=== PATIENT | male | born 1970 | race African-American/Black ===

== ENCOUNTER 2019-01-16 10:13 | Inpatient (IN) ==
[2019-01-16] MEDS ORDERED: FUROSEMIDE 40 MG/4 ML VIAL IV STA (10:54)
[2019-01-16 11:09] LABS: Basophils # 0.1 10*3/uL (0.0-0.2); Basophils % 0.8 % (0.0-0.8); Eosinophils # 0.2 10*3/uL (0.0-0.87); Hematocrit 26.5 VOL% (42.0-52.0); Hemoglobin 8.4 GM/DL (14.0-18.0); Immature Granulocytes % 1.2 %; Immature Granulocytes Absolute 0.11 #; Lymphocytes # 3.6 10*3/uL (1.4-4.0); Lymphocytes % 37.8 % (21.2-54.2); Mean Corpuscular HGB Conc 31.7 GM/DL (32-36); Mean Platelet Volume 8.5 FL (9.6-12.0); Monocytes % 8.8 % (1.7-12.7); Neutrophils % 49.4 % (38.7-73.9); Platelet Count 398 T/CUMM (130-400); Red Blood Count 2.79 MC/CUMM (3.8-5.5); Red Cell Distribution Width 14.9 % (9.3-17.3); White Blood Count 9.5 T/CUMM (4-12)
[2019-01-16 11:19] LABS: INR 0.9; Partial Thromboplastin Time 23.1 SECS (20.8-36.0)
[2019-01-16 11:34] LABS: Alanine Aminotransferase 41 U/L (16-61); Albumin 2.4 G/DL (3.4-5.0); Alkaline Phosphatase 84 U/L (45-117); Aspartate Amino Transferase 32 U/L (0-37); Bilirubin,Total < 0.39 MG/DL (0.2-1.0); Blood Urea Nitrogen 37 MG/DL (7-18); Calcium 7.8 MG/DL (8.5-10.1); Estimated Glom Filtration Rate 23 ML/MIN; Glucose 133 MG/DL (74-106); Osmolality,Calculated 298.7 MOS/KG (273-304); Total Protein 5.2 G/DL (6.4-8.3)
[2019-01-16] MEDS ORDERED: PIPERACILLIN/TAZOBACTAM 3,375 MG in SODIUM CHLORIDE 0.9% 100 ML IV STA (11:59)
[2019-01-16 12:23] LABS: Amorphous Crystals,Urine Occasional /HPF (Few); Apearance,Urine CLEAR (Clear); Bacteria,Urine Occasional /HPF (Few); Bilirubin,Urine Negative (Negative); Blood, Urine Small mg/dL (Negative); Glucose,Urine (UA) 150 mg/dL (Negative); Hyaline Casts,Urine 3 /LPF (0-3); Ketones,Urine Negative (Negative); Mucus,Urine Occasional /LPF (Occasional); Nitrite,Urine Negative (Negative); Protein,Urine >=500 MG/DL; RBC,Urine 2 /HPF (0-4); Urine Color Straw (Yellow); Urine Urobilinogen < 2.0 EU/DL (0.2-1.0); WBC,Urine 1 /HPF (0-6)
[2019-01-16] MEDS ORDERED: ACETAMINOPHEN 325 MG TABLET PO PRN (13:52)
[2019-01-16] MEDS ORDERED: DEXTROSE 50% 25 GM/50 ML VIAL IV PRN (13:52)
[2019-01-16] MEDS ORDERED: GLUCAGON 1 MG VIAL IM PRN (13:52)
[2019-01-16] MEDS ORDERED: ALBUTEROL 2.5 MG/3 ML NEB RESP TX PRN (13:55)
[2019-01-16] MEDS ORDERED: SODIUM CHLORIDE 0.9% 100 ML IV ONE (14:31)
[2019-01-16 14:34] LABS: Folate 12.5 NG/ML (5.4-24.0); Vitamin B12 546 PG/ML (211-911)
[2019-01-16] MEDS: methylPREDNISolone SOD SUC 40 MG/1 ML VIAL IV SCH (14:35)
[2019-01-16 14:37] LABS: Risk Ratio 3.06; Thyroid Stimulating Hormone 1.25 uIU/ml (0.358-3.74); VLDL CHOLESTEROL 11.8 MG/DL
[2019-01-16] MEDS: ENOXAPARIN 30 MG/0.3 ML SYRINGE SUBCUT SCH (14:39)
[2019-01-16] MEDS: cefTRIAXone 1,000 MG in SYRINGE 1 EACH IV SCH (14:40)
[2019-01-16] MEDS: AZITHROMYCIN INJ 500 MG in SODIUM CHLORIDE 0.9% 250 ML IV SCH (16:13)
[2019-01-16] MEDS: BENZONATATE 100 MG CAPSULE PO SCH ×2 (16:13→20:13)
[2019-01-16] MEDS ORDERED: hydrALAZINE 20 MG/1 ML VIAL IV PRN (16:18)
[2019-01-16 17:27] LABS: Basophils # 0.1 10*3/uL (0.0-0.2); Basophils % 0.9 % (0.0-0.8); Eosinophils # 0.2 10*3/uL (0.0-0.87); Eosinophils % 1.7 % (0.00-10.9); Hematocrit 26.3 VOL% (42.0-52.0); Hemoglobin 8.1 GM/DL (14.0-18.0); Immature Granulocytes % 1.3 %; Immature Granulocytes Absolute 0.12 #; Lymphocytes # 3.4 10*3/uL (1.4-4.0); Lymphocytes % 36.2 % (21.2-54.2); Mean Corpuscular HGB Conc 30.8 GM/DL (32-36); Mean Corpuscular Volume 96.3 FL (87-102); Mean Platelet Volume 9.3 FL (9.6-12.0); Monocytes % 4.5 % (1.7-12.7); Neutrophils % 55.4 % (38.7-73.9); Platelet Count 454 T/CUMM (130-400); Red Blood Count 2.73 MC/CUMM (3.8-5.5); White Blood Count 9.4 T/CUMM (4-12)
[2019-01-16] MEDS: INSULIN REGULAR 100 UNIT/ML SUBCUT SCH (17:35)
[2019-01-16 19:29] LABS: Sedimentation Rate-Westergren 40 MM/HR (0-15)
[2019-01-16] MEDS: ALBUTEROL/IPRATROPIUM 3 ML NEB RESP TX SCH (20:11)
[2019-01-16] MEDS: ATORVASTATIN 20 MG TABLET PO SCH (20:13)
[2019-01-16 22:47] LABS: Apearance,Urine CLEAR (Clear); Bacteria,Urine Occasional /HPF (Few); Bilirubin,Urine Negative (Negative); Blood, Urine Small mg/dL (Negative); Glucose,Urine (UA) >=500 mg/dL (Negative); Ketones,Urine Negative (Negative); Nitrite,Urine Negative (Negative); Protein,Urine >=500 MG/DL; RBC,Urine 4 /HPF (0-4); Urine Color Straw (Yellow); Urine Urobilinogen < 2.0 EU/DL (0.2-1.0); WBC,Urine 2 /HPF (0-6)
[2019-01-16 23:04] LABS: Barbiturates Screen,Urine Negative (Negative); Benzodiazepines Screen,Urine Negative (Negative); Cannabinoid Screen,Urine Negative (Negative); Opiate Screen,Urine Negative (Negative); Phencyclidine Screen,Urine Negative (Negative)
[2019-01-17] MEDS: methylPREDNISolone SOD SUC 40 MG/1 ML VIAL IV SCH ×2 (01:13→15:40)
[2019-01-17] MEDS: ALBUTEROL/IPRATROPIUM 3 ML NEB RESP TX SCH ×5 (01:13→20:03)
[2019-01-17 05:26] LABS: Basophils % 0.2 % (0.0-0.8); Eosinophils % 0.1 % (0.00-10.9); Hematocrit 26.5 VOL% (42.0-52.0); Hemoglobin 8.3 GM/DL (14.0-18.0); Immature Granulocytes % 2.2 %; Immature Granulocytes Absolute 0.25 #; Lymphocytes # 3.1 10*3/uL (1.4-4.0); Lymphocytes % 27.2 % (21.2-54.2); Mean Corpuscular HGB Conc 31.3 GM/DL (32-36); Mean Corpuscular Volume 93.6 FL (87-102); Mean Platelet Volume 9.3 FL (9.6-12.0); Monocytes % 2.6 % (1.7-12.7); Neutrophils % 67.7 % (38.7-73.9); Platelet Count 462 T/CUMM (130-400); Red Blood Count 2.83 MC/CUMM (3.8-5.5); Red Cell Distribution Width 14.7 % (9.3-17.3); White Blood Count 11.4 T/CUMM (4-12)
[2019-01-17 05:45] LABS: Calcium 7.7 MG/DL (8.5-10.1); Osmolality,Calculated 294.4 MOS/KG (273-304)
[2019-01-17] MEDS: PANTOPRAZOLE 40 MG TABLET PO SCH (08:47)
[2019-01-17] MEDS: FUROSEMIDE 40 MG/4 ML VIAL IV SCH (08:48)
[2019-01-17] MEDS: BENZONATATE 100 MG CAPSULE PO SCH ×3 (08:48→20:34)
[2019-01-17] MEDS: INSULIN GLARGINE 100 UNIT/ML SUBCUT SCH (08:48)
[2019-01-17] MEDS: INSULIN REGULAR 100 UNIT/ML SUBCUT SCH ×3 (08:48→16:33)
[2019-01-17 10:56] LABS: Hemoglobin A1 (Alkaline) 97.2 % (96.5-98.5); Hemoglobin A2 (Alkaline) 2.8 % (1.5-3.5)
[2019-01-17] MEDS: cefTRIAXone 1,000 MG in SYRINGE 1 EACH IV SCH (15:21)
[2019-01-17] MEDS: AZITHROMYCIN INJ 500 MG in SODIUM CHLORIDE 0.9% 250 ML IV SCH (15:25)
[2019-01-17] MEDS: ENOXAPARIN 30 MG/0.3 ML SYRINGE SUBCUT SCH (15:26)
[2019-01-17] MEDS ORDERED: INSULIN REGULAR 100 UNIT/ML SUBCUT ONE (15:40)
[2019-01-17] MEDS: ATORVASTATIN 20 MG TABLET PO SCH (20:34)
[2019-01-17 22:43] LABS: Creatinine,Urine Random 113 MG/DL; Total Protein,Urine Random 592 MG/DL; Urea Nitrogen, Urine Random 493 MG/DL
[2019-01-18] MEDS: ALBUTEROL/IPRATROPIUM 3 ML NEB RESP TX SCH ×2 (00:37→08:39)
[2019-01-18] MEDS: methylPREDNISolone SOD SUC 40 MG/1 ML VIAL IV SCH ×2 (02:20→14:22)
[2019-01-18 04:48] LABS: Basophils % 0.2 % (0.0-0.8); Eosinophils % 0.1 % (0.00-10.9); Hematocrit 24.7 VOL% (42.0-52.0); Hemoglobin 7.9 GM/DL (14.0-18.0); Immature Granulocytes % 1.6 %; Lymphocytes # 2.8 10*3/uL (1.4-4.0); Lymphocytes % 22.8 % (21.2-54.2); Mean Corpuscular Volume 92.9 FL (87-102); Mean Platelet Volume 9.1 FL (9.6-12.0); Monocytes % 3.8 % (1.7-12.7); Neutrophils % 71.5 % (38.7-73.9); Platelet Count 430 T/CUMM (130-400); Red Blood Count 2.66 MC/CUMM (3.8-5.5); Red Cell Distribution Width 14.8 % (9.3-17.3); White Blood Count 12.4 T/CUMM (4-12)
[2019-01-18 05:14] LABS: Albumin 2.4 G/DL (3.4-5.0); Calcium 7.9 MG/DL (8.5-10.1); Osmolality,Calculated 297.4 MOS/KG (273-304)
[2019-01-18] MEDS: INSULIN REGULAR 100 UNIT/ML SUBCUT SCH ×2 (08:51→13:08)
[2019-01-18] MEDS: BENZONATATE 100 MG CAPSULE PO SCH ×2 (08:52→14:22)
[2019-01-18] MEDS: FUROSEMIDE 40 MG/4 ML VIAL IV SCH (08:52)
[2019-01-18] MEDS: INSULIN GLARGINE 100 UNIT/ML SUBCUT SCH (08:52)
[2019-01-18] MEDS: PANTOPRAZOLE 40 MG TABLET PO SCH (08:52)
[2019-01-18] MEDS ORDERED: AZITHROMYCIN 250 MG TABLET PO SCH (09:00)
[2019-01-18 13:47] VITALS: BP 162/91
[2019-01-18] MEDS: ENOXAPARIN 30 MG/0.3 ML SYRINGE SUBCUT SCH (14:22)
[2019-01-18] MEDS: cefTRIAXone 1,000 MG in SYRINGE 1 EACH IV SCH (14:25)
[2019-01-18] MEDS ORDERED: FERROUS SULFATE 325 MG TABLET PO SCH (21:00)
== END 2019-01-18 15:04 | disposition home or self-care (01) | DRG 139 ==
LOC: N.ED 10:13 → N.EDINP 13:52 → SUATTDRO 13:52 → N.5E 14:45
PROVIDERS: ADMIT Internal Medicine; ATTEND Internal Medicine

== ENCOUNTER 2019-08-22 16:31 | Inpatient (IN) ==
[2019-08-22] MEDS ORDERED: hydrALAZINE 20 MG/1 ML VIAL ONE (17:55)
[2019-08-22 17:56] LABS: Basophils # 0.1 10*3/uL (0.0-0.2); Basophils % 0.7 % (0.0-0.8); Eosinophils # 0.3 10*3/uL (0.0-0.87); Eosinophils % 2.7 % (0.00-10.9); Hematocrit 25.2 VOL% (42.0-52.0); Hemoglobin 7.8 GM/DL (14.0-18.0); Immature Granulocytes % 0.9 %; Lymphocytes # 1.7 10*3/uL (1.4-4.0); Lymphocytes % 15.9 % (21.2-54.2); Mean Platelet Volume 8.1 FL (9.6-12.0); Monocytes % 10.3 % (1.7-12.7); Neutrophils % 69.5 % (38.7-73.9); Platelet Count 551 T/CUMM (130-400); Red Blood Count 2.71 MC/CUMM (3.8-5.5); White Blood Count 10.7 T/CUMM (4-12)
[2019-08-22] MEDS ORDERED: hydrALAZINE 20 MG/1 ML VIAL IV STA (17:57)
[2019-08-22 18:07] LABS: PT Patient Result 11.1 SECS (9.8-11.9)
[2019-08-22 18:12] LABS: Alanine Aminotransferase 33 U/L (16-61); Albumin 1.9 G/DL (3.4-5.0); Alkaline Phosphatase 89 U/L (45-117); Aspartate Amino Transferase 17 U/L (0-37); Bilirubin,Total < 0.39 MG/DL (0.2-1.0); Blood Urea Nitrogen 45 MG/DL (7-18); Calcium 8.4 MG/DL (8.5-10.1); Estimated Glom Filtration Rate 13 ML/MIN; Glucose 133 MG/DL (74-106); Osmolality,Calculated 292.4 MOS/KG (273-304); Total Protein 7.1 G/DL (6.4-8.3)
[2019-08-22 18:13] LABS: Ferritin 513.6 ng/ml (26-388)
[2019-08-22] MEDS ORDERED: GLUCAGON 1 MG VIAL IM PRN (19:20)
[2019-08-22] MEDS ORDERED: ACETAMINOPHEN 325 MG TABLET PO PRN (19:20)
[2019-08-22] MEDS ORDERED: ONDANSETRON 4 MG/2 ML VIAL IV PRN (19:20)
[2019-08-22] MEDS ORDERED: DEXTROSE 50% 25 GM/50 ML VIAL IV PRN (19:20)
[2019-08-22] MEDS ORDERED: amLODIPine 5 MG TABLET PO STA (19:23)
[2019-08-22] MEDS ORDERED: hydrALAZINE 20 MG/1 ML VIAL IV PRN (19:25)
[2019-08-22] MEDS ORDERED: DOCUSATE SODIUM 100 MG CAPSULE PO PRN (19:28)
[2019-08-22] MEDS ORDERED: LACTULOSE 20 GM/30 ML UDCUP PO PRN (19:28)
[2019-08-22] MEDS ORDERED: cefTRIAXone 1,000 MG VIAL ONE (21:39)
[2019-08-22] MEDS: HEPARIN 5,000 UNIT/1 ML VIAL SUBCUT SCH (21:58)
[2019-08-22] MEDS: INSULIN REGULAR 100 UNIT/ML SUBCUT SCH (21:59)
[2019-08-22] MEDS: cefTRIAXone 2,000 MG in SYRINGE 1 EACH IV SCH (22:45)
[2019-08-22] MEDS: guaiFENesin/DM ER 600-30 MG TABLET PO SCH (23:51)
[2019-08-22] MEDS: ALBUTEROL 2 MG TABLET PO SCH (23:52)
[2019-08-22] MEDS: hydrALAZINE 25 MG TABLET PO SCH (23:52)
[2019-08-23] MEDS: BUDESONIDE/FORMOTEROL 80-4.5 INHALER 6.9 GM INH SCH ×3 (00:36→21:32)
[2019-08-23 05:24] LABS: Basophils # 0.1 10*3/uL (0.0-0.2); Basophils % 0.7 % (0.0-0.8); Eosinophils # 0.1 10*3/uL (0.0-0.87); Eosinophils % 0.8 % (0.00-10.9); Hematocrit 27.3 VOL% (42.0-52.0); Hemoglobin 8.8 GM/DL (14.0-18.0); Immature Granulocytes % 1.3 %; Immature Granulocytes Absolute 0.16 #; Lymphocytes # 1.2 10*3/uL (1.4-4.0); Lymphocytes % 9.7 % (21.2-54.2); Mean Corpuscular HGB Conc 32.2 GM/DL (32-36); Mean Corpuscular Volume 91.9 FL (87-102); Mean Platelet Volume 8.3 FL (9.6-12.0); Neutrophils % 78.5 % (38.7-73.9); Platelet Count 538 T/CUMM (130-400); Red Blood Count 2.97 MC/CUMM (3.8-5.5); White Blood Count 12.1 T/CUMM (4-12)
[2019-08-23] MEDS: HEPARIN 5,000 UNIT/1 ML VIAL SUBCUT SCH ×3 (05:28→21:28)
[2019-08-23 06:01] LABS: % Iron Saturation 12.3 % (18-50); Ferritin 514.2 ng/ml (26-388)
[2019-08-23 06:16] LABS: Folate 14.9 NG/ML (5.4-24.0); Vitamin B12 607 PG/ML (211-911)
[2019-08-23 06:18] LABS: Calcium 8.4 MG/DL (8.5-10.1); Osmolality,Calculated 294.3 MOS/KG (273-304)
[2019-08-23 06:40] LABS: Sedimentation Rate-Westergren 120 MM/HR (0-15)
[2019-08-23] MEDS ORDERED: GLYCOPYRROLATE FORMOTEROL INH SCH (09:00)
[2019-08-23] MEDS: NICOTINE 21 MG/24 HR PATCH TRANSDERM SCH (09:13)
[2019-08-23] MEDS: ALBUTEROL 2 MG TABLET PO SCH ×3 (09:14→21:27)
[2019-08-23] MEDS: OMEGA 3 ACID ETHYL ESTERS 1 GM CAPSULE PO SCH (09:14)
[2019-08-23] MEDS: guaiFENesin/DM ER 600-30 MG TABLET PO SCH ×2 (09:14→21:27)
[2019-08-23] MEDS: INSULIN REGULAR 100 UNIT/ML SUBCUT SCH ×4 (09:14→21:32)
[2019-08-23] MEDS: GABAPENTIN 300 MG CAPSULE PO SCH ×3 (09:14→21:27)
[2019-08-23] MEDS: buPROPion SR 100 MG TABLET PO SCH (09:20)
[2019-08-23] MEDS: AZITHROMYCIN INJ 500 MG in SODIUM CHLORIDE 0.9% 250 ML IV SCH (09:24)
[2019-08-23 12:21] LABS: Parathyroid Hormone Intact 390.4 PG/ML (18.4-80.1)
[2019-08-23] MEDS: amLODIPine 5 MG TABLET PO SCH (14:37)
[2019-08-23] MEDS: hydrALAZINE 25 MG TABLET PO SCH ×2 (14:37→21:27)
[2019-08-23] MEDS: cefTRIAXone 2,000 MG in SYRINGE 1 EACH IV SCH (21:24)
[2019-08-23] MEDS: ATORVASTATIN 20 MG TABLET PO SCH (21:27)
[2019-08-24] MEDS: HEPARIN 5,000 UNIT/1 ML VIAL SUBCUT SCH ×3 (05:43→21:26)
[2019-08-24 05:59] LABS: Basophils # 0.1 10*3/uL (0.0-0.2); Eosinophils # 0.2 10*3/uL (0.0-0.87); Eosinophils % 1.8 % (0.00-10.9); Hematocrit 28.4 VOL% (42.0-52.0); Hemoglobin 8.8 GM/DL (14.0-18.0); Immature Granulocytes Absolute 0.11 #; Lymphocytes # 1.1 10*3/uL (1.4-4.0); Lymphocytes % 10.2 % (21.2-54.2); Mean Corpuscular Volume 94.4 FL (87-102); Mean Platelet Volume 8.5 FL (9.6-12.0); Monocytes % 9.5 % (1.7-12.7); Neutrophils % 76.5 % (38.7-73.9); Platelet Count 538 T/CUMM (130-400); Red Blood Count 3.01 MC/CUMM (3.8-5.5); Red Cell Distribution Width 15.2 % (9.3-17.3); White Blood Count 11.1 T/CUMM (4-12)
[2019-08-24 06:27] LABS: Calcium 8.6 MG/DL (8.5-10.1); Osmolality,Calculated 284.5 MOS/KG (273-304)
[2019-08-24] MEDS: ALBUTEROL 2 MG TABLET PO SCH ×3 (09:04→21:26)
[2019-08-24] MEDS: NICOTINE 21 MG/24 HR PATCH TRANSDERM SCH (09:04)
[2019-08-24] MEDS: guaiFENesin/DM ER 600-30 MG TABLET PO SCH ×2 (09:05→21:26)
[2019-08-24] MEDS: OMEGA 3 ACID ETHYL ESTERS 1 GM CAPSULE PO SCH (09:05)
[2019-08-24] MEDS: amLODIPine 5 MG TABLET PO SCH (09:05)
[2019-08-24] MEDS: hydrALAZINE 25 MG TABLET PO SCH ×2 (09:05→21:26)
[2019-08-24] MEDS: GABAPENTIN 300 MG CAPSULE PO SCH ×3 (09:05→21:26)
[2019-08-24] MEDS: CINACALCET 30 MG TABLET PO SCH (09:05)
[2019-08-24] MEDS: BUDESONIDE/FORMOTEROL 80-4.5 INHALER 6.9 GM INH SCH ×2 (09:05→21:27)
[2019-08-24] MEDS: buPROPion SR 100 MG TABLET PO SCH (09:05)
[2019-08-24] MEDS: INSULIN REGULAR 100 UNIT/ML SUBCUT SCH ×4 (09:13→21:27)
[2019-08-24] MEDS: AZITHROMYCIN INJ 500 MG in SODIUM CHLORIDE 0.9% 250 ML IV SCH (09:13)
[2019-08-24 09:48] LABS: ABG Base Excess 2.3 MMOL/L (-2.5-2.5); ABG HCO3 26.5 MMOL/L (20-26); ABG Oxygen Saturation 94.8 % (95-100); ABG PCO2 51.7 MM HG (35-48); ABG PO2 78.5 MM HG (80-95); ABG TCO2 26.7 MMOL/L (23-27)
[2019-08-24] MEDS ORDERED: ALBUTEROL/IPRATROPIUM 3 ML NEB RESP TX PRN (11:55)
[2019-08-24] MEDS: ATORVASTATIN 20 MG TABLET PO SCH (21:26)
[2019-08-24] MEDS: cefTRIAXone 2,000 MG in SYRINGE 1 EACH IV SCH (23:54)
[2019-08-25] MEDS: HEPARIN 5,000 UNIT/1 ML VIAL SUBCUT SCH ×3 (05:58→23:12)
[2019-08-25] MEDS: INSULIN REGULAR 100 UNIT/ML SUBCUT SCH ×4 (08:04→23:12)
[2019-08-25] MEDS: ALBUTEROL 2 MG TABLET PO SCH ×3 (08:52→23:11)
[2019-08-25] MEDS: GABAPENTIN 300 MG CAPSULE PO SCH ×3 (08:52→23:11)
[2019-08-25 10:01] LABS: Eosinophils,Pleural Fluid 8 %; Lymphocytes,Pleural Fluid 57 %; Monocytes,Pleural Fluid 8 %; Neutrophils,Pleural Fluid 27 %
[2019-08-25 10:05] LABS: RBC,Pleural Fluid 993 T/CUMM
[2019-08-25] MEDS: NICOTINE 21 MG/24 HR PATCH TRANSDERM SCH (10:53)
[2019-08-25] MEDS: hydrALAZINE 25 MG TABLET PO SCH ×2 (10:54→23:12)
[2019-08-25] MEDS: amLODIPine 5 MG TABLET PO SCH (10:54)
[2019-08-25] MEDS: CINACALCET 30 MG TABLET PO SCH (10:54)
[2019-08-25] MEDS: OMEGA 3 ACID ETHYL ESTERS 1 GM CAPSULE PO SCH (10:54)
[2019-08-25] MEDS: BUDESONIDE/FORMOTEROL 80-4.5 INHALER 6.9 GM INH SCH ×2 (10:54→23:16)
[2019-08-25] MEDS: buPROPion SR 100 MG TABLET PO SCH (10:54)
[2019-08-25] MEDS: guaiFENesin/DM ER 600-30 MG TABLET PO SCH ×2 (10:54→23:12)
[2019-08-25] MEDS: AZITHROMYCIN INJ 500 MG in SODIUM CHLORIDE 0.9% 250 ML IV SCH (10:59)
[2019-08-25 12:15] LABS: Hemoglobin A1 (Alkaline) 97.1 % (96.5-98.5); Hemoglobin A2 (Alkaline) 2.9 % (1.5-3.5)
[2019-08-25 13:27] LABS: Basophils # 0.1 10*3/uL (0.0-0.2); Basophils % 0.9 % (0.0-0.8); Eosinophils # 0.1 10*3/uL (0.0-0.87); Eosinophils % 1.3 % (0.00-10.9); Hematocrit 27.1 VOL% (42.0-52.0); Hemoglobin 8.2 GM/DL (14.0-18.0); Immature Granulocytes % 0.6 %; Immature Granulocytes Absolute 0.06 #; Lymphocytes # 0.9 10*3/uL (1.4-4.0); Lymphocytes % 8.6 % (21.2-54.2); Mean Corpuscular HGB Conc 30.3 GM/DL (32-36); Mean Corpuscular Volume 95.1 FL (87-102); Mean Platelet Volume 9.5 FL (9.6-12.0); Monocytes % 6.6 % (1.7-12.7); Platelet Count 461 T/CUMM (130-400); Red Blood Count 2.85 MC/CUMM (3.8-5.5); Red Cell Distribution Width 15.4 % (9.3-17.3); White Blood Count 10.3 T/CUMM (4-12)
[2019-08-25 13:53] LABS: Calcium 8.1 MG/DL (8.5-10.1); Osmolality,Calculated 281.8 MOS/KG (273-304)
[2019-08-25 14:45] LABS: Hepatitis B Core IgM Quant 0.14 Index; Hepatitis B Surface Ag Quant < 0.10 Index; Hepatitis B Surface Ag Result Negative (Negative); Hepatitis C Virus Ab Quant 0.06 Index; Hepatitis C Virus Ab Result Negative (Negative)
[2019-08-25] MEDS: cefTRIAXone 2,000 MG in SYRINGE 1 EACH IV SCH (22:14)
[2019-08-25] MEDS: ATORVASTATIN 20 MG TABLET PO SCH (23:11)
[2019-08-26] MEDS: HEPARIN 5,000 UNIT/1 ML VIAL SUBCUT SCH ×3 (05:20→21:39)
[2019-08-26 06:34] LABS: Basophils # 0.1 10*3/uL (0.0-0.2); Basophils % 0.8 % (0.0-0.8); Eosinophils % 0.4 % (0.00-10.9); Hematocrit 23.6 VOL% (42.0-52.0); Hemoglobin 7.4 GM/DL (14.0-18.0); Immature Granulocytes % 0.6 %; Immature Granulocytes Absolute 0.06 #; Lymphocytes # 1.1 10*3/uL (1.4-4.0); Lymphocytes % 11.3 % (21.2-54.2); Mean Corpuscular HGB Conc 31.4 GM/DL (32-36); Mean Corpuscular Volume 91.5 FL (87-102); Mean Platelet Volume 8.6 FL (9.6-12.0); Monocytes % 8.1 % (1.7-12.7); Neutrophils % 78.8 % (38.7-73.9); Platelet Count 461 T/CUMM (130-400); Red Blood Count 2.58 MC/CUMM (3.8-5.5); Red Cell Distribution Width 15.3 % (9.3-17.3); White Blood Count 9.9 T/CUMM (4-12)
[2019-08-26 06:55] LABS: Calcium 7.6 MG/DL (8.5-10.1)
[2019-08-26] MEDS: buPROPion SR 100 MG TABLET PO SCH (08:39)
[2019-08-26] MEDS: OMEGA 3 ACID ETHYL ESTERS 1 GM CAPSULE PO SCH (08:39)
[2019-08-26] MEDS: amLODIPine 5 MG TABLET PO SCH (08:39)
[2019-08-26] MEDS: guaiFENesin/DM ER 600-30 MG TABLET PO SCH ×2 (08:39→21:26)
[2019-08-26] MEDS: INSULIN GLARGINE 100 UNIT/ML SUBCUT SCH (08:39)
[2019-08-26] MEDS: GABAPENTIN 300 MG CAPSULE PO SCH ×3 (08:40→21:26)
[2019-08-26] MEDS: CINACALCET 30 MG TABLET PO SCH (08:40)
[2019-08-26] MEDS: hydrALAZINE 25 MG TABLET PO SCH ×2 (08:40→21:26)
[2019-08-26] MEDS: INSULIN REGULAR 100 UNIT/ML SUBCUT SCH ×4 (08:40→21:24)
[2019-08-26] MEDS: NICOTINE 21 MG/24 HR PATCH TRANSDERM SCH (08:40)
[2019-08-26] MEDS: BUDESONIDE/FORMOTEROL 80-4.5 INHALER 6.9 GM INH SCH ×2 (08:41→21:27)
[2019-08-26] MEDS: AZITHROMYCIN INJ 500 MG in SODIUM CHLORIDE 0.9% 250 ML IV SCH (08:41)
[2019-08-26] MEDS: ALBUTEROL 2 MG TABLET PO SCH ×3 (08:59→21:26)
[2019-08-26] MEDS: ATORVASTATIN 20 MG TABLET PO SCH (21:26)
[2019-08-26] MEDS: cefTRIAXone 2,000 MG in SYRINGE 1 EACH IV SCH (21:28)
[2019-08-27] MEDS: HEPARIN 5,000 UNIT/1 ML VIAL SUBCUT SCH ×3 (05:11→22:01)
[2019-08-27 05:47] LABS: Basophils # 0.1 10*3/uL (0.0-0.2); Basophils % 0.8 % (0.0-0.8); Eosinophils # 0.2 10*3/uL (0.0-0.87); Eosinophils % 2.1 % (0.00-10.9); Hematocrit 23.3 VOL% (42.0-52.0); Hemoglobin 7.4 GM/DL (14.0-18.0); Immature Granulocytes % 0.4 %; Immature Granulocytes Absolute 0.04 #; Lymphocytes # 1.4 10*3/uL (1.4-4.0); Mean Corpuscular HGB Conc 31.8 GM/DL (32-36); Mean Platelet Volume 8.7 FL (9.6-12.0); Monocytes % 10.3 % (1.7-12.7); Neutrophils % 71.4 % (38.7-73.9); Platelet Count 482 T/CUMM (130-400); Red Blood Count 2.59 MC/CUMM (3.8-5.5); Red Cell Distribution Width 15.2 % (9.3-17.3); White Blood Count 9.3 T/CUMM (4-12)
[2019-08-27 06:01] LABS: Calcium 7.7 MG/DL (8.5-10.1); Osmolality,Calculated 281.8 MOS/KG (273-304)
[2019-08-27] MEDS: NICOTINE 21 MG/24 HR PATCH TRANSDERM SCH (08:42)
[2019-08-27] MEDS: amLODIPine 5 MG TABLET PO SCH (08:43)
[2019-08-27] MEDS: CINACALCET 30 MG TABLET PO SCH (08:43)
[2019-08-27] MEDS: OMEGA 3 ACID ETHYL ESTERS 1 GM CAPSULE PO SCH (08:43)
[2019-08-27] MEDS: INSULIN GLARGINE 100 UNIT/ML SUBCUT SCH (08:44)
[2019-08-27] MEDS: ALBUTEROL 2 MG TABLET PO SCH ×3 (08:44→22:00)
[2019-08-27] MEDS: INSULIN REGULAR 100 UNIT/ML SUBCUT SCH ×4 (08:44→22:01)
[2019-08-27] MEDS: guaiFENesin/DM ER 600-30 MG TABLET PO SCH ×2 (08:44→22:00)
[2019-08-27] MEDS: GABAPENTIN 300 MG CAPSULE PO SCH ×3 (08:44→22:01)
[2019-08-27] MEDS: hydrALAZINE 25 MG TABLET PO SCH ×2 (08:44→22:00)
[2019-08-27] MEDS: BUDESONIDE/FORMOTEROL 80-4.5 INHALER 6.9 GM INH SCH ×2 (08:46→22:02)
[2019-08-27] MEDS: AZITHROMYCIN INJ 500 MG in SODIUM CHLORIDE 0.9% 250 ML IV SCH (13:42)
[2019-08-27] MEDS: ATORVASTATIN 20 MG TABLET PO SCH (22:00)
[2019-08-27] MEDS: cefTRIAXone 2,000 MG in SYRINGE 1 EACH IV SCH (22:01)
[2019-08-28] MEDS: HEPARIN 5,000 UNIT/1 ML VIAL SUBCUT SCH (06:35)
[2019-08-28 06:56] LABS: Basophils # 0.1 10*3/uL (0.0-0.2); Basophils % 0.9 % (0.0-0.8); Eosinophils # 0.2 10*3/uL (0.0-0.87); Eosinophils % 2.1 % (0.00-10.9); Hematocrit 23.6 VOL% (42.0-52.0); Hemoglobin 7.5 GM/DL (14.0-18.0); Immature Granulocytes % 0.7 %; Immature Granulocytes Absolute 0.05 #; Lymphocytes # 1.5 10*3/uL (1.4-4.0); Mean Corpuscular HGB Conc 31.8 GM/DL (32-36); Mean Corpuscular Volume 89.7 FL (87-102); Mean Platelet Volume 8.4 FL (9.6-12.0); Monocytes % 11.2 % (1.7-12.7); Neutrophils % 65.1 % (38.7-73.9); Platelet Count 481 T/CUMM (130-400); Red Blood Count 2.63 MC/CUMM (3.8-5.5); Red Cell Distribution Width 15.4 % (9.3-17.3); White Blood Count 7.7 T/CUMM (4-12)
[2019-08-28 07:22] LABS: Calcium 7.9 MG/DL (8.5-10.1); Osmolality,Calculated 278.7 MOS/KG (273-304)
[2019-08-28 07:57] VITALS: BP 156/80
[2019-08-28] MEDS: INSULIN REGULAR 100 UNIT/ML SUBCUT SCH ×2 (08:32→12:28)
[2019-08-28] MEDS: NICOTINE 21 MG/24 HR PATCH TRANSDERM SCH (08:43)
[2019-08-28] MEDS: AZITHROMYCIN INJ 500 MG in SODIUM CHLORIDE 0.9% 250 ML IV SCH (08:44)
[2019-08-28] MEDS: amLODIPine 5 MG TABLET PO SCH (08:44)
[2019-08-28] MEDS: hydrALAZINE 25 MG TABLET PO SCH (08:45)
[2019-08-28] MEDS: GABAPENTIN 300 MG CAPSULE PO SCH (08:45)
[2019-08-28] MEDS: ALBUTEROL 2 MG TABLET PO SCH (08:45)
[2019-08-28] MEDS: guaiFENesin/DM ER 600-30 MG TABLET PO SCH (08:45)
[2019-08-28] MEDS: OMEGA 3 ACID ETHYL ESTERS 1 GM CAPSULE PO SCH (08:45)
[2019-08-28] MEDS: BUDESONIDE/FORMOTEROL 80-4.5 INHALER 6.9 GM INH SCH (08:46)
[2019-08-28] MEDS: CINACALCET 30 MG TABLET PO SCH (09:00)
[2019-08-28] MEDS: INSULIN GLARGINE 100 UNIT/ML SUBCUT SCH (09:01)
[2019-08-28] MEDS ORDERED: CEFUROXIME 250 MG TABLET PO SCH (21:00)
== END 2019-08-28 12:35 | disposition home health service (06) | DRG 194 ==
LOC: EDUNIT# → EDBD → N.ED 16:31 → N.EDINP 19:01 → SUATTDRO 19:01 → N.TELES 19:41
PROVIDERS: ADMIT Internal Medicine; ATTEND Hospitalist

== ENCOUNTER 2019-12-17 11:31 | Inpatient (IN) ==
[2019-12-17] MEDS ORDERED: ALBUTEROL/IPRATROPIUM 3 ML NEB RESP TX STA (12:07)
[2019-12-17 12:25] LABS: Basophils # 0.1 10*3/uL (0.0-0.2); Eosinophils # 0.2 10*3/uL (0.0-0.87); Eosinophils % 4.5 % (0.00-10.9); Hematocrit 37.5 VOL% (42.0-52.0); Hemoglobin 12.6 GM/DL (14.0-18.0); Immature Granulocytes % 0.4 %; Immature Granulocytes Absolute 0.02 #; Lymphocytes # 1.7 10*3/uL (1.4-4.0); Mean Corpuscular HGB Conc 33.6 GM/DL (32-36); Mean Corpuscular Volume 87.6 FL (87-102); Mean Platelet Volume 8.2 FL (9.6-12.0); Monocytes % 13.4 % (1.7-12.7); Neutrophils % 47.7 % (38.7-73.9); Platelet Count 201 T/CUMM (130-400); Red Blood Count 4.28 MC/CUMM (3.8-5.5); Red Cell Distribution Width 20.1 % (9.3-17.3); White Blood Count 5.1 T/CUMM (4-12)
[2019-12-17 14:23] LABS: Albumin 3.4 G/DL (3.4-5.0); Bilirubin,Total 0.4 MG/DL (0.2-1.0); Calcium 9.1 MG/DL (8.5-10.1); Osmolality,Calculated 278.5 MOS/KG (273-304); Total Protein 8.1 G/DL (6.4-8.3)
[2019-12-17] MEDS ORDERED: ACETAMINOPHEN 325 MG TABLET PO PRN (14:54)
[2019-12-17] MEDS ORDERED: DEXTROSE 50% 25 GM/50 ML VIAL IV PRN (14:54)
[2019-12-17] MEDS ORDERED: GLUCAGON 1 MG VIAL IM PRN (14:54)
[2019-12-17] MEDS ORDERED: BISACODYL 5 MG TABLET PO PRN (14:54)
[2019-12-17] MEDS ORDERED: ONDANSETRON 4 MG/2 ML VIAL IV PRN (14:54)
[2019-12-17] MEDS ORDERED: NICOTINE 21 MG/24 HR PATCH TRANSDERM PRN (14:54)
[2019-12-17 15:16] LABS: PT Patient Result 11.1 SECS (9.8-11.9)
[2019-12-17 15:17] LABS: Partial Thromboplastin Time 61.8 SECS (23.9-33.8)
[2019-12-17] MEDS ORDERED: hydrALAZINE 20 MG/1 ML VIAL IV PRN (15:27)
[2019-12-17] MEDS ORDERED: FUROSEMIDE 40 MG/4 ML VIAL IV STA (16:02)
[2019-12-17 16:51] LABS: Albumin 3.4 G/DL (3.4-5.0); Total Protein 7.9 G/DL (6.4-8.3)
[2019-12-17] MEDS: cefTRIAXone 1,000 MG in SYRINGE 1 EACH IV SCH (17:20)
[2019-12-17] MEDS: ALBUTEROL/IPRATROPIUM 3 ML NEB RESP TX SCH (19:50)
[2019-12-17] MEDS: INSULIN LISPRO 100 UNIT/ML SUBCUT SCH ×2 (20:18→20:19)
[2019-12-17] MEDS: carvediloL 12.5 MG TABLET PO SCH (23:08)
[2019-12-17] MEDS: ATORVASTATIN 20 MG TABLET PO SCH (23:08)
[2019-12-17] MEDS: GABAPENTIN 300 MG CAPSULE PO SCH ×2 (23:12→23:13)
[2019-12-18] MEDS: ALBUTEROL/IPRATROPIUM 3 ML NEB RESP TX SCH ×4 (00:15→18:57)
[2019-12-18] MEDS ORDERED: PNEUMOCOCCAL VACCINE (13 VALENT) 0.5 ML SYRINGE IM ONE (01:00)
[2019-12-18] MEDS: AZITHROMYCIN INJ 500 MG in SODIUM CHLORIDE 0.9% 250 ML IV SCH ×2 (03:03→17:20)
[2019-12-18 04:58] LABS: Basophils # 0.1 10*3/uL (0.0-0.2); Basophils % 1.2 % (0.0-0.8); Eosinophils # 0.2 10*3/uL (0.0-0.87); Eosinophils % 4.8 % (0.00-10.9); Hematocrit 35.9 VOL% (42.0-52.0); Hemoglobin 12.3 GM/DL (14.0-18.0); Immature Granulocytes % 0.6 %; Immature Granulocytes Absolute 0.03 #; Lymphocytes # 1.4 10*3/uL (1.4-4.0); Mean Corpuscular HGB Conc 34.3 GM/DL (32-36); Mean Corpuscular Volume 89.5 FL (87-102); Mean Platelet Volume 8.4 FL (9.6-12.0); Monocytes % 12.3 % (1.7-12.7); Neutrophils % 54.1 % (38.7-73.9); Platelet Count 250 T/CUMM (130-400); Red Blood Count 4.01 MC/CUMM (3.8-5.5); Red Cell Distribution Width 20.1 % (9.3-17.3)
[2019-12-18 05:23] LABS: Osmolality,Calculated 278.7 MOS/KG (273-304); Risk Ratio 3.08; VLDL CHOLESTEROL 11.6 MG/DL
[2019-12-18] MEDS ORDERED: amLODIPine 5 MG TABLET PO SCH (09:00)
[2019-12-18] MEDS: OMEGA 3 ACID ETHYL ESTERS 1 GM CAPSULE PO SCH (09:41)
[2019-12-18] MEDS: carvediloL 12.5 MG TABLET PO SCH ×2 (09:41→23:36)
[2019-12-18] MEDS: GABAPENTIN 300 MG CAPSULE PO SCH ×3 (09:41→23:36)
[2019-12-18] MEDS: amLODIPine 10 MG TABLET PO SCH (09:41)
[2019-12-18] MEDS: INSULIN GLARGINE 100 UNIT/ML SUBCUT SCH (09:46)
[2019-12-18] MEDS: INSULIN LISPRO 100 UNIT/ML SUBCUT SCH ×3 (09:47→16:08)
[2019-12-18 09:58] LABS: Lymphocytes,Pleural Fluid 94 %; Monocytes,Pleural Fluid 2 %; Neutrophils,Pleural Fluid 4 %; RBC,Pleural Fluid 1407 T/CUMM
[2019-12-18 10:06] LABS: Glucose,Pleural Fluid 111 MG/DL; LDH,Body Fluid 254 U/L; Total Protein,Body Fluid 4.4 G/DL
[2019-12-18] MEDS: cefTRIAXone 1,000 MG in SYRINGE 1 EACH IV SCH (15:44)
[2019-12-18] MEDS: ATORVASTATIN 20 MG TABLET PO SCH (23:36)
[2019-12-19] MEDS: INSULIN LISPRO 100 UNIT/ML SUBCUT SCH ×5 (01:20→21:45)
[2019-12-19] MEDS: ALBUTEROL/IPRATROPIUM 3 ML NEB RESP TX SCH ×4 (01:34→19:51)
[2019-12-19 05:43] LABS: Basophils # 0.1 10*3/uL (0.0-0.2); Basophils % 0.7 % (0.0-0.8); Eosinophils # 0.3 10*3/uL (0.0-0.87); Hematocrit 34.6 VOL% (42.0-52.0); Hemoglobin 11.5 GM/DL (14.0-18.0); Immature Granulocytes % 0.3 %; Immature Granulocytes Absolute 0.02 #; Lymphocytes # 1.2 10*3/uL (1.4-4.0); Lymphocytes % 17.6 % (21.2-54.2); Mean Corpuscular HGB Conc 33.2 GM/DL (32-36); Mean Corpuscular Volume 88.5 FL (87-102); Mean Platelet Volume 8.8 FL (9.6-12.0); Monocytes % 12.2 % (1.7-12.7); Neutrophils % 65.2 % (38.7-73.9); Platelet Count 229 T/CUMM (130-400); Red Blood Count 3.91 MC/CUMM (3.8-5.5); Red Cell Distribution Width 18.6 % (9.3-17.3)
[2019-12-19 06:02] LABS: Calcium 8.7 MG/DL (8.5-10.1)
[2019-12-19] MEDS: amLODIPine 10 MG TABLET PO SCH (09:44)
[2019-12-19] MEDS: hydrALAZINE 25 MG TABLET PO SCH ×3 (09:44→23:55)
[2019-12-19] MEDS: GABAPENTIN 300 MG CAPSULE PO SCH (09:44)
[2019-12-19] MEDS: OMEGA 3 ACID ETHYL ESTERS 1 GM CAPSULE PO SCH (09:45)
[2019-12-19] MEDS: carvediloL 12.5 MG TABLET PO SCH ×2 (09:45→23:55)
[2019-12-19] MEDS: INSULIN GLARGINE 100 UNIT/ML SUBCUT SCH (09:45)
[2019-12-19] MEDS: GABAPENTIN 100 MG CAPSULE PO SCH ×2 (15:57→23:55)
[2019-12-19] MEDS ORDERED: HEPARIN 10,000 UNIT/10 ML VIAL IV SCH (16:30)
[2019-12-19] MEDS: cefTRIAXone 1,000 MG in SYRINGE 1 EACH IV SCH (17:01)
[2019-12-19] MEDS: AZITHROMYCIN INJ 500 MG in SODIUM CHLORIDE 0.9% 250 ML IV SCH (17:04)
[2019-12-19] MEDS: ATORVASTATIN 20 MG TABLET PO SCH (23:55)
[2019-12-20] MEDS: ALBUTEROL/IPRATROPIUM 3 ML NEB RESP TX SCH ×2 (01:28→07:20)
[2019-12-20] MEDS: GABAPENTIN 100 MG CAPSULE PO SCH (08:01)
[2019-12-20 08:43] VITALS: BP 161/93
[2019-12-20] MEDS: INSULIN LISPRO 100 UNIT/ML SUBCUT SCH ×2 (09:19→12:36)
[2019-12-20] MEDS: hydrALAZINE 25 MG TABLET PO SCH (09:20)
[2019-12-20] MEDS: amLODIPine 10 MG TABLET PO SCH (09:20)
[2019-12-20] MEDS: INSULIN GLARGINE 100 UNIT/ML SUBCUT SCH (09:20)
[2019-12-20] MEDS: OMEGA 3 ACID ETHYL ESTERS 1 GM CAPSULE PO SCH (09:20)
[2019-12-20] MEDS: carvediloL 12.5 MG TABLET PO SCH (09:20)
== END 2019-12-20 11:50 | disposition home or self-care (01) | DRG 194 ==
LOC: EDBD → EDUNIT# → N.ED 11:31 → N.EDINP 14:27 → N.TELES 17:43
PROVIDERS: ADMIT Family Medicine; ATTEND Family Medicine

== ENCOUNTER 2021-01-09 05:39 | Inpatient (IN) ==
[2021-01-09 06:09] LABS: Basophils # 0.1 10*3/uL (0.0-0.2); Basophils % 0.7 % (0.0-0.8); Eosinophils # 0.3 10*3/uL (0.0-0.87); Eosinophils % 3.1 % (0.00-10.9); Hematocrit 33.2 VOL% (42.0-52.0); Hemoglobin 10.1 GM/DL (14.0-18.0); Immature Granulocytes % 0.6 %; Immature Granulocytes Absolute 0.05 #; Lymphocytes # 1.1 10*3/uL (1.4-4.0); Lymphocytes % 12.9 % (21.2-54.2); Mean Corpuscular HGB Conc 30.4 GM/DL (32-36); Mean Corpuscular Volume 100.9 FL (87-102); Mean Platelet Volume 8.8 FL (9.6-12.0); Monocytes % 7.4 % (1.7-12.7); Neutrophils % 75.3 % (38.7-73.9); Platelet Count 331 T/CUMM (130-400); Red Blood Count 3.29 MC/CUMM (3.8-5.5); Red Cell Distribution Width 18.1 % (9.3-17.3); White Blood Count 8.4 T/CUMM (4-12)
[2021-01-09] MEDS ORDERED: MORPHINE 10 MG/1 ML VIAL IV STA (06:10)
[2021-01-09] MEDS ORDERED: MORPHINE 2 MG/1 ML SYRINGE IV STA (06:11)
[2021-01-09] MEDS ORDERED: MORPHINE 2 MG/1 ML SYRINGE ONE (06:12)
[2021-01-09 06:16] LABS: ABG Base Excess 2.5 MMOL/L (-2.5-2.5); ABG HCO3 29.1 MMOL/L (20-26); ABG Oxygen Saturation 50.1 % (95-100); ABG PCO2 54.4 MM HG (35-48); ABG PH 7.346 (7.35-7.45); ABG TCO2 30.8 MMOL/L (23-27)
[2021-01-09 06:20] LABS: ABG PO2 29.3 MM HG (80-95)
[2021-01-09 06:27] LABS: Albumin 3.5 G/DL (3.4-5.0); Bilirubin,Total 0.8 MG/DL (0.20-1.00); Calcium 9.8 MG/DL (8.5-10.1); Osmolality,Calculated 290.4 MOS/KG (273-304); Potassium 5.6 MMOL/L (3.5-5.1)
[2021-01-09 06:32] LABS: PT Patient Result 11.3 SECS (10.5-12.0)
[2021-01-09 06:38] LABS: ABG Base Excess -2.5 MMOL/L (-2.5-2.5); ABG HCO3 21.8 MMOL/L (20-26); ABG Oxygen Saturation 72.3 % (95-100); ABG PCO2 63.4 MM HG (35-48); ABG PH 7.229 (7.35-7.45); ABG PO2 50.1 MM HG (80-95); ABG TCO2 24.4 MMOL/L (23-27)
[2021-01-09] MEDS: NITROGLYCERIN DRIP 50 MG/250 ML BOTTLE IV SCH (06:47)
[2021-01-09] MEDS ORDERED: DOCUSATE SODIUM 100 MG CAPSULE PO PRN (07:49)
[2021-01-09] MEDS ORDERED: ONDANSETRON 4 MG/2 ML VIAL IV PRN (07:49)
[2021-01-09] MEDS ORDERED: ACETAMINOPHEN 325 MG TABLET PO PRN (07:49)
[2021-01-09] MEDS ORDERED: guaiFENesin/DM ER 600-30 MG TABLET PO PRN (07:49)
[2021-01-09] MEDS ORDERED: GLUCAGON 1 MG VIAL IM PRN (07:49)
[2021-01-09] MEDS ORDERED: hydrALAZINE 20 MG/1 ML VIAL IV PRN (07:49)
[2021-01-09] MEDS ORDERED: MORPHINE 2 MG/1 ML SYRINGE IV PRN (07:49)
[2021-01-09] MEDS ORDERED: DEXTROSE 50% 25 GM/50 ML SYRINGE IV PRN (07:53)
[2021-01-09] MEDS ORDERED: methylPREDNISolone SOD SUC 125 MG/2 ML VIAL IV STA (08:02)
[2021-01-09] MEDS: HEPARIN 5,000 UNIT/1 ML VIAL SUBCUT SCH ×2 (08:35→20:46)
[2021-01-09] MEDS: PANTOPRAZOLE 40 MG TABLET PO SCH (10:45)
[2021-01-09] MEDS: ALBUTEROL/IPRATROPIUM 3 ML NEB RESP TX SCH ×2 (13:15→20:28)
[2021-01-09] MEDS: cefTRIAXone 1,000 MG in SODIUM CHLORIDE 0.9% 100 ML IV SCH (16:30)
[2021-01-09] MEDS: AZITHROMYCIN INJ 500 MG in SODIUM CHLORIDE 0.9% 250 ML IV SCH (16:30)
[2021-01-09] MEDS: THEOPHYLLINE ER 300 MG TABLET PO SCH (16:30)
[2021-01-09] MEDS: INSULIN REGULAR 100 UNIT/ML SUBCUT SCH ×2 (16:58→20:45)
[2021-01-09] MEDS ORDERED: cloNIDine 0.1 MG TABLET PO PRN (17:35)
[2021-01-09] MEDS: ATORVASTATIN 20 MG TABLET PO SCH (20:45)
[2021-01-09] MEDS: carvediloL 25 MG TABLET PO SCH (20:45)
[2021-01-10] MEDS: ALBUTEROL/IPRATROPIUM 3 ML NEB RESP TX SCH ×4 (03:00→20:16)
[2021-01-10 04:04] LABS: ABG Base Excess 0.5 MMOL/L (-2.5-2.5); ABG HCO3 25.8 MMOL/L (20-26); ABG Oxygen Saturation 95.8 % (95-100); ABG PCO2 44.5 MM HG (35-48); ABG PH 7.381 (7.35-7.45); ABG PO2 83.3 MM HG (80-95); ABG TCO2 27.2 MMOL/L (23-27)
[2021-01-10 06:20] LABS: Basophils % 0.4 % (0.0-0.8); Hematocrit 33.4 VOL% (42.0-52.0); Hemoglobin 10.1 GM/DL (14.0-18.0); Immature Granulocytes % 0.7 %; Immature Granulocytes Absolute 0.06 #; Lymphocytes % 11.2 % (21.2-54.2); Mean Corpuscular HGB Conc 30.2 GM/DL (32-36); Mean Corpuscular Volume 99.7 FL (87-102); Monocytes % 10.8 % (1.7-12.7); Neutrophils % 76.9 % (38.7-73.9); Platelet Count 327 T/CUMM (130-400); Red Blood Count 3.35 MC/CUMM (3.8-5.5); Red Cell Distribution Width 17.8 % (9.3-17.3)
[2021-01-10 07:05] LABS: Albumin 3.1 G/DL (3.4-5.0); Osmolality,Calculated 284.8 MOS/KG (273-304); Potassium 4.8 MMOL/L (3.5-5.1); Total Protein 6.9 G/DL (6.4-8.2)
[2021-01-10] MEDS: carvediloL 25 MG TABLET PO SCH ×2 (08:57→21:44)
[2021-01-10] MEDS: PANTOPRAZOLE 40 MG TABLET PO SCH (08:57)
[2021-01-10] MEDS: levETIRAcetam 500 MG TABLET PO SCH (08:57)
[2021-01-10] MEDS: THEOPHYLLINE ER 300 MG TABLET PO SCH ×2 (08:57→18:41)
[2021-01-10] MEDS: HEPARIN 5,000 UNIT/1 ML VIAL SUBCUT SCH ×2 (08:58→22:08)
[2021-01-10] MEDS: INSULIN REGULAR 100 UNIT/ML SUBCUT SCH ×4 (09:59→20:41)
[2021-01-10] MEDS: NITROGLYCERIN DRIP 50 MG/250 ML BOTTLE IV SCH (09:59)
[2021-01-10] MEDS ORDERED: HEPARIN 10,000 UNIT/10 ML VIAL IV SCH (16:00)
[2021-01-10] MEDS: cefTRIAXone 1,000 MG in SODIUM CHLORIDE 0.9% 100 ML IV SCH (18:39)
[2021-01-10] MEDS: AZITHROMYCIN INJ 500 MG in SODIUM CHLORIDE 0.9% 250 ML IV SCH (18:39)
[2021-01-10] MEDS: ATORVASTATIN 20 MG TABLET PO SCH (21:44)
[2021-01-11] MEDS: ALBUTEROL/IPRATROPIUM 3 ML NEB RESP TX SCH ×2 (00:49→07:15)
[2021-01-11 05:54] LABS: Basophils # 0.1 10*3/uL (0.0-0.2); Basophils % 0.8 % (0.0-0.8); Eosinophils # 0.1 10*3/uL (0.0-0.87); Eosinophils % 1.7 % (0.00-10.9); Hematocrit 33.5 VOL% (42.0-52.0); Hemoglobin 10.7 GM/DL (14.0-18.0); Immature Granulocytes % 0.8 %; Immature Granulocytes Absolute 0.05 #; Lymphocytes # 1.3 10*3/uL (1.4-4.0); Lymphocytes % 19.1 % (21.2-54.2); Mean Corpuscular HGB Conc 31.9 GM/DL (32-36); Mean Corpuscular Volume 97.4 FL (87-102); Mean Platelet Volume 8.7 FL (9.6-12.0); Monocytes % 11.4 % (1.7-12.7); Neutrophils % 66.2 % (38.7-73.9); Platelet Count 305 T/CUMM (130-400); Red Blood Count 3.44 MC/CUMM (3.8-5.5); Red Cell Distribution Width 17.4 % (9.3-17.3); White Blood Count 6.7 T/CUMM (4-12)
[2021-01-11 06:05] LABS: Calcium 9.1 MG/DL (8.5-10.1); Osmolality,Calculated 279.1 MOS/KG (273-304); Potassium 4.4 MMOL/L (3.5-5.1)
[2021-01-11] MEDS: INSULIN REGULAR 100 UNIT/ML SUBCUT SCH ×2 (08:13→12:38)
[2021-01-11] MEDS: NITROGLYCERIN DRIP 50 MG/250 ML BOTTLE IV SCH (08:13)
[2021-01-11] MEDS: levETIRAcetam 500 MG TABLET PO SCH (09:35)
[2021-01-11] MEDS: THEOPHYLLINE ER 300 MG TABLET PO SCH (09:35)
[2021-01-11] MEDS: carvediloL 25 MG TABLET PO SCH (09:35)
[2021-01-11] MEDS: HEPARIN 5,000 UNIT/1 ML VIAL SUBCUT SCH (09:36)
[2021-01-11 11:28] VITALS: BP 143/77
== END 2021-01-11 14:55 | disposition home health service (06) | DRG 133 ==
LOC: EDBD → EDUNIT# → N.ED 05:39 → SUATTDRO 07:46 → N.EDINP 07:46 → N.ICU 09:51 → N.TELES 01-10 19:32
PROVIDERS: ADMIT Internal Medicine; ATTEND Emergency Medicine